=== PATIENT | male | born 1950 | race Caucasian/White ===

== ENCOUNTER 2020-05-11 14:55 | Day surgery (SDC) | payer MEDICARE, BC ==
[2020-05-11] MEDS ORDERED: ceFAZolin SOD 2 GM in IV 1 EA IV ONE (15:00)
[2020-05-11] MEDS ORDERED: ANAS1TAB2 PO (16:12)
[2020-05-11] MEDS ORDERED: CARV25TA PO (16:12)
[2020-05-11] MEDS ORDERED: TERA10CA3 PO (16:12)
[2020-05-11] MEDS ORDERED: AMLO1TAB24 PO (16:12)
[2020-05-11] MEDS ORDERED: AZEL1SPR3 IH (16:12)
[2020-05-11] MEDS ORDERED: PRAV40TA2 PO (16:12)
[2020-05-11] MEDS ORDERED: TORS10TA3 PO (16:12)
[2020-05-11] MEDS ORDERED: ceFAZolin 1GM VIAL (J0690 PER 500MG) As Ordered ONE (17:23)
[2020-05-11] MEDS ORDERED: dexameTHASONE 4 MG/ML 1ML VIAL (J1100 PER 1MG) As Ordered ONE (17:59)
[2020-05-11] MEDS ORDERED: SUGAMMADEX SODIUM 500 MG/5 ML VIAL (BRIDION) As Ordered ONE (17:59)
[2020-05-11] MEDS ORDERED: LIDOCAINE 2% 100MG/5ML SDV (FOR ANES.) As Ordered ONE (17:59)
[2020-05-11] MEDS ORDERED: ONDANSETRON 4MG/2ML VIAL As Ordered ONE (17:59)
[2020-05-11] MEDS ORDERED: METOCLOPRAMIDE INJ 10MG/2ML VIAL (J2765 PER 1) As Ordered ONE (17:59)
[2020-05-11] MEDS ORDERED: MIDAZOLAM INJ 2MG/2ML VIAL (J2250 PER 1MG) As Ordered ONE (17:59)
[2020-05-11] MEDS ORDERED: propofoL 200 MG/20 ML VIAL As Ordered ONE ×2 (17:59→18:06)
[2020-05-11] MEDS ORDERED: fentaNYL 100 MCG/2 ML INJECTION (J3010) As Ordered ONE ×2 (17:59→18:00)
[2020-05-11] MEDS ORDERED: ROCURONIUM BROMIDE 50 MG/5 ML VIAL As Ordered ONE (17:59)
[2020-05-11] MEDS ORDERED: ePHEDrine SULFATE 25 MG/5 ML(5MG/ML) SYRINGE As Ordered ONE (18:05)
[2020-05-11] MEDS ORDERED: ONDANSETRON 4MG/2ML VIAL IV PRN (19:30)
[2020-05-11] MEDS ORDERED: LR 1,000 ML IV SCH ×2 (19:30→20:30)
[2020-05-11] MEDS ORDERED: fentaNYL 100 MCG/2 ML INJECTION (J3010) IV PRN (19:30)
[2020-05-11] MEDS: oxyCODONE 5MG TAB PO PRN ×2 (19:38→20:03)
--- NOTE | 2020-05-11 20:03 | REP ---
INDICATION: ORIF RIGHT ELBOW. COMPARISON: None. TECHNIQUE: Multiple C-arm views right elbow performed. FINDINGS: Pins and wires are visualized in the proximal ulna. The osseous structures appear wall line. IMPRESSION: 1 minutes 2 seconds fluoroscopy time utilized. <Electronically signed by Pa Ordonez > 05/11/201999
[2020-05-11] MEDS ORDERED: MORPHINE 2 MG/ML 1ML VIAL (J2270) IV PRN (20:30)
[2020-05-11] MEDS ORDERED: PERCOCET 5MG/325MG TAB PO PRN ×2 (20:30)
[2020-05-11 21:07] VITALS: BP 168/90
--- NOTE | 2020-05-12 11:57 | RO ---
DATE OF OPERATION: 05/11/2020 PREOPERATIVE DIAGNOSIS: Displaced right olecranon fracture. POSTOPERATIVE DIAGNOSIS: Displaced right olecranon fracture. PROCEDURE: Right displaced olecranon fracture open reduction internal fixation using K-wire and tension band technique. SURGEON: Los Mackay M.D. MEDICAL INSURANCE VERIFIER: ANESTHESIA: General endotracheal tube anesthetic. COMPLICATIONS: None. ESTIMATED BLOOD LOSS: 20 mL. SPECIMENS: None. DESCRIPTION OF PROCEDURE: Antibiotics were given preoperatively. A successful general endotracheal tube anesthetic was established. Tourniquet was placed to the right upper extremity and not inflated. The right upper extremity was then carefully prepped and draped in the usual sterile fashion. After appropriate time-out, the tourniquet was inflated to 250 mmHg. I made a longitudinal incision posteriorly. Bovee cautery was used to coagulate the crossing vessels down to the fracture site. The hematoma was evacuated and the wound copiously irrigated. There was some thickened bursal tissue from his chronic olecranon bursitis that was debrided sharply and with a rongeur. I dissected down along the crest of the ulna to the approximate location where I would place the cerclage wire. The fracture edges were carefully debrided and identified, and the hematoma at the fracture site was debrided such so I could get a good clean look at the fracture for anatomic open reduction. This was then accomplished using the pointed reduction forceps. This was confirmed to have good reduction on the fluoroscopic image on the mini C-arm in the AP and lateral planes. I then placed two K-wires down across the fracture site from the olecranon distally and made sure they were within the confines of the ulna by fluoroscopic imaging in the AP and lateral places. Once I was satisfied the reduction was adequate and the K-wires were in good position, I made a small drill hole on either side of the ulna crest distal to the fracture site and passed the 18-gauge cerclage wire. Then in a [id number] fashion, passed it around the K-wires proximally, and then I made a twist in the wire on one end and the two ends were then twisted together as well both in a clockwise fashion. I made sure there was good tension as I tightened with the pliers. I then used the Jet [employer] hospital unit coordinator to sequentially tighten both limbs, providing good firm rigid fixation. I brought his elbow through a range of motion, there was no gapping at the fracture site, and it was felt to be quite stable. Fluoroscopic imaging confirmed that we appeared to have good reduction of the fracture and thus at this point, I cut the cerclage wires, buried them in the soft tissues, and then proximally I trimmed the K-wires coming out the olecranon, then bent them 90 degrees, then rotated, and then impacted them into the soft tissues of the triceps to help hold the cerclage wire in position. Again, fluoroscopic imaging confirmed we had good reduction. At this point, the tourniquet was released and we copiously irrigated out the wound as I did several times throughout the operation, closed the subdermal tissues with interrupted 2-0 PDS sutures. The skin was closed with alea covered by an Adaptic dry sterile bulky dressing, and a posterior plaster splint was placed under the dressing. He was placed into a sling, and then transferred to the recovery room in stable condition. There were no intraoperative complications. JOHN
--- NOTE | 2020-05-12 19:27 | ECGEPIP ---
[facility] Test Date: 2020-05-11 Pat Name: SHARRI RAGLAND Department: Room: - Gender: Male Vending Route Servicer: MARIBETH : 1950 Requested By: Brittni Madison Order Number: [id number] Reading MD: Kar Cornell Measurements Intervals [place] Rate: 66 P: -7 MA: 191 QRS: 27 QRSD: 84 T: 20 QT: 401 QTc: 420 Interpretive Statements SINUS RHYTHM NO PRIOR Electronically Signed on 05-12-2020 19:27:26 EST by Kar Cornell
== END 2020-05-11 21:07 | disposition home or self-care (01) ==
LOC: M SDC 14:55
PROVIDERS: ATTEND Orthopaedic Surgery
DX: S52.021A Displaced fracture of olecranon process without intraarticular extension of right ulna, initial encounter for closed fracture (principal); M70.21 Olecranon bursitis, right elbow; I10 Essential (primary) hypertension; G47.30 Sleep apnea, unspecified; W19.XXXA Unspecified fall, initial encounter; Y92.9 Unspecified place or not applicable; Y93.9 Activity, unspecified; Y99.9 Unspecified external cause status
CPT/HCPCS: 24685; 76000; 93005; C1713; J0690; J1100; J2250; J2405; J2765; J3010; U0002